=== PATIENT | male | born 2000 | race Caucasian/White ===

== ENCOUNTER 2020-11-23 02:54 | Emergency (ER) | payer SELFPAY ==
[~2020-11-23] VITALS: Ht 175.3 cm; Wt 72.7 kg
[2020-11-23 02:57] VITALS: TEMP 97.6
[2020-11-23] MEDS ORDERED: PEPCID 20MG TAB20 MG PO (04:12)
[2020-11-23] MEDS ORDERED: PREDNISONE20 MG PO (04:12)
[2020-11-23 04:16] VITALS: BP 132/59; PULSE 79
== END 2020-11-23 04:16 | disposition home or self-care (01) ==
LOC: COL.ER 02:54
DX: T78.40XA Allergy, unspecified, initial encounter (principal); J45.909 Unspecified asthma, uncomplicated
CPT/HCPCS: J1200; J2930; J7030